=== PATIENT | female | born 1975 | race Caucasian/White ===

== ENCOUNTER 2020-08-09 13:09 | Outpatient (REF) | payer OTHER, SELFPAY ==
[2020-08-09 14:18] LABS: MANUAL DIFF FLAG NO
[2020-08-09 14:23] LABS: Glucose Urine UA 100 MG/DL (NEG); Leukocyte Esterase Urine NEG (NEG); Nitrite Urine NEG (NEG); PH 6.5 (5.0-8.0); Specific Gravity - Urine 1.015 (1.005-1.025); Urine Blood NEG (NEG); Urine Ketones NEG (NEG); Urine Protein NEG (NEG-TRACE)
[2020-08-09 14:24] LABS: Basophils Percent Auto 0.4 % (0-2); Eosinophils Absolute Auto 0.4 X10*3/uL (0.0-0.4); Eosinophils Percent Auto 5.9 % (0-4); Hematocrit 43.7 % (37-47); Hemoglobin 14.3 g/dl (12.0-16.0); Imm Gran Abs Auto 0.01 X10*3/uL (0.00-0.03); Imm Gran Pct Auto 0.1 % (0.0-0.4); Lymphocytes Absolute Auto 1.8 X10*3/uL (1.2-4.9); Mean Corpuscular HGB Conc 32.7 g/dl (31.0-35.0); Mean Corpuscular Hemoglobin 29.7 pg (27.0-33.0); Mean Corpuscular Volume 90.9 fL (80-98); Mean Platelet Volume 9.9 fL (9.4-12.3); Monocytes Absolute Auto 0.5 X10*3/uL (0.1-1.2); Monocytes Percent Auto 6.8 % (2-11); Neutrophils Percent Auto 59.8 % (45-73); Platelet Count 285 X10*3/uL (160-400); Red Blood Count 4.81 X10*6/uL (4.20-5.50); Red Cell Distribution Width 12.2 % (11.0-16.0); White Blood Count 6.8 X10*3/uL (4.8-10.8)
[2020-08-09 14:25] LABS: Appearance Urine HAZY; Color Urine YELLOW
[2020-08-09 14:48] LABS: Alanine Aminotransferase 15 U/L (0-31); Albumin Level 4.6 g/dL (3.5-5.0); Alkaline Phosphatase 91 U/L (39-117); Anion Gap 13 (12-20); Aspartate Amino Transferase 14 U/L (5-31); Bilirubin Total 0.5 mg/dL (0.0-1.0); Blood Urea Nitrogen 13 mg/dL (9-16); Calcium 9.5 mg/dL (8.4-10.2); Carbon Dioxide 28 mmol/L (22-29); Chloride 103 mmol/L (96-108); Cholesterol 279 mg/dL; Estimated Glomerular Filt Rate > 60; Glucose Random 92 mg/dL (60-115); HDL Cholesterol 60 mg/dL; LDL Cholesterol Calculated 158 mg/dl; Potassium 4.3 mmol/L (3.3-5.1); Sodium 140 mmol/L (135-145); Total Protein 7.3 g/dL (6.5-8.0); Triglycerides 306 mg/dL; Uric Acid 6.7 mg/dL (2.4-5.7)
[2020-08-09 14:59] LABS: Bacteria Urine TRACE /LPF; Mucus Urine 1+ /LPF; RBC Urine 0-2 /HPF (0); Squamous Epithelial Cell Urine 2+ /LPF; WBC Urine 0-2 /HPF (0-4)
[2020-08-09 15:01] LABS: Free T4 (Free Thyroxine) 0.91 ng/dL (0.71-1.85); Thyroid Stimulating Hormone 0.89 uIU/mL (0.32-4.0); Vitamin D 25-OH Total 28.7 ng/mL (>30)
[2020-08-09 15:21] LABS: Folate 14.4 ng/mL (> or = 4.0); Vitamin B12 409 pg/mL (200-900)
== END 2020-08-09 13:10 | disposition home or self-care (01) ==
LOC: HO.LAB 13:09
PROVIDERS: PCP Internal Medicine; Visit Provider Internal Medicine
DX: F41.9 Anxiety disorder, unspecified (principal); M54.10 Radiculopathy, site unspecified; M10.9 Gout, unspecified; E78.00 Pure hypercholesterolemia, unspecified; M54.5 Low back pain
CPT/HCPCS: 36415; 80053; 80061; 81001; 82306; 82607; 82746; 84439; 84443; 84550; 85025

== ENCOUNTER 2021-05-13 18:24 | Emergency (ER) | payer OTHER, SELFPAY ==
[2021-05-13 18:39] VITALS: BP 172/118; PULSE 81; RESP 16; TEMP 37.1; O2SAT 98; BMI 39.1
[2021-05-13 19:40] VITALS: BP 172/101; PULSE 66; RESP 18; TEMP 36.9; O2SAT 99
[2021-05-13 21:06] VITALS: BP 158/85; PULSE 64; RESP 18; TEMP 37.1; O2SAT 97
[2021-05-13 22:01] LABS: COVID-19 Test Negative (Negative); IDNOW Serial# 9DD0AD1C
--- NOTE | 2021-05-13 22:24 | ED_ITS ---
HPI - General Adult General Chief complaint: General Medical Stated complaint: ALLERGIC REACTION Time Seen by Provider: 05/13/21 21:17 Source: patient Mode of arrival: ambulatory Limitations: no limitations History of Present Illness HPI narrative: 45 yold female presents to the ED for side effect of ambien. patient states she has not taken ambien in years and prescribed this past and than states it made her feel off. Patient states it made her feel weird, but could not expalined it. patient states having tingling once she took meds so she stopped taking it. patient secondary complain was left arm redness on area where she had new tatoo done last . patient denies any arm swelling, chest pain, or shortness of breath. Patient states no chest pain, shortness of breath weakness, or dizziness Related Data Home Medications Medication Instructions Recorded Confirmed allopurinol 300 mg tablet 300 mg PO DAILY 05/25/20 04/29/21 dextroamphetamine-amphetamine 15 15 mg PO BID 05/25/20 04/29/21 mg tablet duloxetine 60 mg capsule,delayed 60 mg PO DAILY 05/25/20 04/29/21 release Previous Rx's Medication Instructions Recorded clindamycin HCl 150 mg capsule 150 mg PO TID 7 Days #21 cap 12/25/20 clindamycin HCl 300 mg capsule 300 mg PO TID 7 Days #21 cap 12/25/20 fluticasone propionate 50 2 spray INTRANASAL DAILY #3 ea 04/29/21 mcg/actuation nasal spray,suspension gabapentin 300 mg capsule 300 mg PO TID 90 Days #270 cap 04/29/21 ibuprofen 800 mg tablet 800 mg PO Q8H #30 tab 04/29/21 tizanidine 4 mg tablet 4 mg PO Q8H 30 Days #90 tab 04/29/21 zolpidem 5 mg tablet 5 mg PO BEDTIME 30 Days #14 tab 04/29/21 clindamycin HCl 300 mg capsule 300 mg PO QID 7 Days #28 cap 05/13/21 Allergies Allergy/AdvReac Type Severity Reaction Status Date / Time Penicillins Allergy Severe Vomiting Verified 04/29/21 09:07 codeine [CODEINE] Allergy Unknown VOMIT Verified 04/29/21 09:07 hydrocodone [HYDROCODONE] Allergy Unknown VOMIT Verified 04/29/21 09:07 tylonal with codene Allergy Unknown vomiting Uncoded 04/29/21 09:07 Review of Systems Review of Systems: Adverse medication reaction. Left arm redness after new tatoo was placed. Yes all other systems are reviewed and are negative [facility] Past Medical History Medical History (Updated 05/14/21 @ 00:01 by Simón Vera) Gout Hypercholesterolemia Radicular pain of upper extremity Surgical History (Updated 05/25/20 @ 17:07 by Fran Tarango MD) DDD (degenerative disc disease), cervical H/O toe surgery H/O tubal ligation Family History Family History (Updated 05/25/20 @ 17:08 by Fran Tarango MD) Father Alcohol abuse Brother Schizophrenia Social History Social History (Updated 05/25/20 @ 17:09 by Fran Tarango MD) Housing: Apartment Alcohol intake: current Alcohol intake frequency: a few times a month Alcohol type: beer, wine and hard liquor Patient Tobacco Use Status: Former Tobacco user Tobacco use type: Cigarette e-Cigarette/Vaping Use: Never Used Second Hand Smoke Exposure: No Advance Directives: No Advance Directives Information Provided: No Current occupational status: disabled Physical Exam ED Vital Signs: Vital Signs - 24 hr 05/13/21 18:39 05/13/21 19:40 05/13/21 21:06 Temperature 98.8 F 98.4 F 98.7 F Pulse Rate 81 66 64 Respiratory Rate 16 18 18 Blood Pressure 172/118 H 172/101 H 158/85 H Pulse Oximetry 98 99 97 BMI result Body Mass Index 39.1 Const General: cooperative, healthy appearing, comfortable, no acute distress, well developed, alert, awake and Physically active Orientation/consciousness: patient oriented x3 HENMT Head: Yes normal to inspection, Yes No palpable skull fracture present, Yes normocephalic, Yes atraumatic and No abrasion Eyes General: appearance normal, both eyes and all related structures Neck Neck: Yes normal visual inspection, Yes full ROM, Yes no lymphadenopathy, Yes no meningeal signs, Yes trachea midline, Yes supple, No anterior neck swelling and No tender Chest Chest palpation & inspection: normal inspection of the chest and normal palpation of entire chest wall Resp Effort & Inspection: normal respiratory effort and able to speak in complete sentences Auscultation: clear to auscultation bilaterally Cardio Jugular venous distension: no JVD Heart sounds: S1 normal heart sound present and S2 normal heart sound present GI Inspection: Yes normal to inspection and No abdominal wall ecchymosis Palpation (GI): Soft to palpation, not firm, nontender, no guarding and not rigid General: No CVA tenderness and Yes no CVA tenderness Back/Spine/Pelvis Back: no CVA tenderness, No CVA tenderness and No back tenderness Skin Other: erythema on area of tattoo with warmth. General skin exam: no rashes or lesions noted and elasticity normal Neuro Other: negative for any neuro deficits. General: patient oriented x3, gait normal, no meningeal signs and CN's II-XI intact bilaterally Cranial nerves: Yes CN's II-XII intact bilaterally Extrem General: Yes normal to inspection and Yes full ROM Elbow/forearm/wrist images: 1. Area of erythema and warmth on new tattoo. Negative for red streaks or swelling. vascular, motor, and neuro exam is intact. Psych Appearance: grossly normal, well kempt and not disheveled Course Course Course Narrative: Patient not in any distress. erythema presents as cellulitis. Patient is anxious. patient given re-assurance. Patient informed infomred to stop taking ambien. Covid swab ordered. Reevaluation(s) Reevaluation #1: Patient discharged with antibiotics for left arm cellulitis. not suscpecting DVT. Covid test negative. patient informed to follow up with PCP in regards to ambien medication. Patient safe for dsicharge. Medical Decision Making MDM Narrative Medical decision making narrative: anxiety, cellulitis, adverse medciation reaction. Lab Data Labs: Lab Results 05/13/21 Range/Units 21:40 COVID-19 ([facility]) Negative (Negative) COVID-19 Clin Com See Note Discharge Plan Discharge Clinical Impression: Cellulitis, Adverse drug reaction Patient Disposition: Home, Self-Care Instructions: Cellulitis (DC), Adverse Drug Reaction (ED) Additional Instructions: Left arm erythema contact to area likely cellulitis will be discharged with antibiotics. You-re COVID swab came back negative. Stop taking ambien and follow up with primary care provider. Return to ED for worsening redness, swelling of left upper extremity, chest pain, shortness of breath, rash elsewhere on the body, swelling lips, sensation of throat closing, chest pain, shortness of breath, or any other concerning symptoms. Prescriptions: New clindamycin HCl 300 mg capsule 300 mg PO QID 7 Days Qty: 28 0RF No Action allopurinol 300 mg tablet 300 mg PO DAILY 0RF duloxetine 60 mg capsule,delayed release(DR/EC) 60 mg PO DAILY 0RF dextroamphetamine-amphetamine 15 mg tablet 15 mg PO BID 0RF Label Comments: Leila psychiatrist Rx Instructions: administer doses at least 4-6 hours apart clindamycin HCl 150 mg capsule 150 mg PO TID 7 Days Qty: 21 0RF Rx Instructions: take with the 300 mg capsule to equal 450 mg t.i.d. clindamycin HCl 300 mg capsule 300 mg PO TID 7 Days Qty: 21 0RF Rx Instructions: take with the 150 mg capsule to equal 450 mg t.i.d. gabapentin 300 mg capsule 300 mg PO TID 90 Days Qty: 270 0RF tizanidine 4 mg tablet 4 mg PO Q8H 30 Days Qty: 90 1RF ibuprofen 800 mg tablet 800 mg PO Q8H Qty: 30 0RF fluticasone propionate 50 mcg/actuation spray,suspension 2 spray intranasal DAILY Qty: 3 3RF Rx Instructions: administer into each nostril zolpidem 5 mg tablet 5 mg PO BEDTIME 30 Days Qty: 14 2RF Interventions: ED Discharge Assessment Last Done: 05/13/21 22:50 Discharge Date/Time: 05/13/21 22:51 Print Language: Korean
[2021-05-13] MEDS: Clindamycin HCL 300 MG CAPSULE PO (22:48)
== END 2021-05-13 22:51 | disposition home or self-care (01) ==
PROVIDERS: Physician Assistant; Emergency Provider Internal Medicine; PCP Internal Medicine
DX: L03.114 Cellulitis of left upper limb (principal); R20.2 Paresthesia of skin; T42.6X5A Adverse effect of other antiepileptic and sedative-hypnotic drugs, initial encounter; Y92.9 Unspecified place or not applicable; Z20.822 Contact with and (suspected) exposure to COVID-19
CPT/HCPCS: 87635; 99283; 99284

== ENCOUNTER 2021-09-16 13:28 | Outpatient (RCR) | payer OTHER, SELFPAY ==
--- NOTE | 2021-09-16 16:11 | MHC.PT.EP ---
[facility] [place] Office [place] [facility] [place] Office [address] wOen Cabrales [address] [phone] F: [phone] F: [phone] F: [phone] F: [phone] Physical Therapy Plan of Care Date of Evaluation: Date of Surgery: Diagnosis: LBP Assessment: Pt is a 46 y/o female with total body pain and script for eval and treat of LBP presents with lumbar dysfunction resulting in decreased tolerance and ability to perform ambulatory, standing and sitting tasks for duration as well as lifting objects of weight, as well as disturbed sleep secondary to decreased hip and core strength, decreased trunk ROM as well as decreased posture, increased tissue tension, gait abnormality and pain. Pt is deemed an appropriate candidate to receive skilled PT in order to address her physical limitations to improve her functional ability. Frequency and Duration: The patient will be seen 1 x / wk x 5 wks. Short Term Goals: Initiate HEP. improve baseline pain from 8/10 to < 6/10. 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 Pt will be able to perform quality transverse abdominis contraction w/o cues. Pt will report that she is able to walk her required distances though has pain; initial: pain limited from walking long distances. improve core strength from fair to at least good (-). Pt will report pain is moderate and does not change much; initial: severe and does not change much. Treatment Plan: Modalities to reduce pain, spasms and effusion. Manual therapy to restore motion and function. Therapeutic exercise to improve strength and flexibility. Neuromuscular re-education for posture and balance. Therapeutic activities to return to functional activities of daily living. Electronically signed by: aPsquale Clements PT. Please sign and return to therapist. Thank you for your referral.
== END 2021-10-18 13:38 | disposition home or self-care (01) ==
LOC: HO.PTCHIC 13:28
PROVIDERS: PCP Internal Medicine; Visit Provider Nurse Practitioner Family
DX: M54.50 Low back pain, unspecified (principal)
CPT/HCPCS: 97110; 97161

== ENCOUNTER → 2021-10-07 13:02 | Outpatient (BNVA) | payer OTHER, SELFPAY | PROVIDERS: PCP Internal Medicine; Visit Provider Internal Medicine | DX: M54.2 Cervicalgia (principal); M54.10 Radiculopathy, site unspecified; M47.816 Spondylosis without myelopathy or radiculopathy, lumbar region; M96.1 Postlaminectomy syndrome, not elsewhere classified | CPT/HCPCS: 99202 ==

== ENCOUNTER 2022-10-15 13:37 | Outpatient (AMB) | payer OTHER, SELFPAY ==
[2022-10-15 13:39] VITALS: BP 130/74; PULSE 79; O2SAT 98; BMI 35.4
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
== END 2022-10-15 15:02 | disposition home or self-care (01) ==
PROVIDERS: PCP Internal Medicine; Visit Provider Internal Medicine
DX: Z00.00 Encounter for general adult medical examination without abnormal findings (principal); F90.9 Attention-deficit hyperactivity disorder, unspecified type; G43.909 Migraine, unspecified, not intractable, without status migrainosus; J45.909 Unspecified asthma, uncomplicated; M10.9 Gout, unspecified; E78.00 Pure hypercholesterolemia, unspecified; F41.1 Generalized anxiety disorder; M96.1 Postlaminectomy syndrome, not elsewhere classified; Z12.31 Encounter for screening mammogram for malignant neoplasm of breast; Z12.11 Encounter for screening for malignant neoplasm of colon; N95.1 Menopausal and female climacteric states; H02.60 Xanthelasma of unspecified eye, unspecified eyelid
CPT/HCPCS: 99396

== ENCOUNTER 2022-12-04 13:17 | Outpatient (REF) | payer OTHER, SELFPAY ==
--- NOTE | ~2022-12-04 | MM_ITS ---
EXAMINATION: MM SCREENING DIGITAL BREAST TOMOSYNTHESIS, BILATERAL CLINICAL INFORMATION: Screening. Asymptomatic. COMPARISON: Mammography: This study is compared with the only prior mammogram [id number]. TECHNIQUE: Digital breast tomosynthesis is performed in both the craniocaudal and mediolateral oblique views along with computer-aided detection (CAD). Synthesized 2D images are generated from the tomosynthesis. FINDINGS: The breasts are almost entirely fatty (ACR BI-RADS breast composition Category a). There are no significant masses, abnormal calcifications, or other abnormalities. MM/MM tomosynthesis screening BI IMPRESSION: No mammographic evidence of malignancy. ASSESSMENT: BI-RADS BI-RADS 1 - Negative RECOMMENDATION: Routine annual mammography screening. 1 year F/U This examination should not preclude the clinical evaluation of a suspicious palpable abnormality. This patient's information was entered into a reminder system with a target due date for their next mammogram.
== END 2022-12-04 13:18 | disposition home or self-care (01) ==
LOC: HO.MAMMO 13:17
PROVIDERS: PCP Internal Medicine; Visit Provider Internal Medicine
DX: Z12.31 Encounter for screening mammogram for malignant neoplasm of breast (principal)
CPT/HCPCS: 77063; 77067

== ENCOUNTER → 2022-12-04 13:45 | Outpatient (BNV) | payer OTHER, SELFPAY | PROVIDERS: PCP Internal Medicine; Visit Provider Radiology Diagnostic Radiology | DX: Z12.31 Encounter for screening mammogram for malignant neoplasm of breast (principal) | CPT/HCPCS: 77063; 77067 ==

== ENCOUNTER 2023-04-17 15:05 | Outpatient (AMB) | payer OTHER, SELFPAY ==
[2023-04-17 15:42] VITALS: PULSE 80; O2SAT 97; BMI 35.1
--- NOTE | 2023-04-17 15:42 | MHC.PC.OV ---
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 Accompanied by: Self / Same As Patient Allergies Penicillins Allergy (Severe, Verified 04/17/23 15:49) Vomiting codeine [CODEINE] Allergy (Unknown, Verified 04/17/23 15:49) VOMIT hydrocodone [HYDROCODONE] Allergy (Unknown, Verified 04/17/23 15:49) VOMIT Medication List - Last Reconciled 04/17/23 by Fran Kinney Po, albuterol sulfate 90 mcg/actuation 1 inh inhalation Q4-6H PRN albuterol sulfate 90 mcg/actuation (Ventolin HFA) 2 puffs inhalation Q6H PRN bupropion HCl (Wellbutrin SR) 150 mg PO BID cetirizine (Zyrtec) 10 mg PO DAILY PRN dextroamphetamine-amphetamine 20 mg 1 tab PO BID [EMBR Wave 2 As directed] fexofenadine (Lisbet Allergy) 180 mg PO DAILY fluticasone propionate 50 mcg/actuation 2 sprays intranasal DAILY gabapentin 600 mg PO TID 90 days ibuprofen 800 mg PO Q8H 30 days lorazepam 0.5 mg PO DAILY PRN nicotine 1 patch transdermal Q24H nicotine 1 patch transdermal Q24H tizanidine 4 mg PO Q8H 30 days Tobacco use date assessed: 04/17/23 Dental Screening Dental Screen Date: 04/17/23 Did you have a dental visit in the last 12 months?: No Did you have a dental problem in the last 6 months where you did not have access to dental care?: No Was dental information given to patient?: Patient has dentist HPI 6mth f/u HPI Details 47-year-old obese female with ADHD gout hypercholesterolemia generalized anxiety disorder migraine and cervical post laminectomy syndrome last seen in September 2022 for physical exam. Mammogram November 2022. reminded about colon test. Allergy problem/ on gabapentin and asking for higher dose patient also has the anxiety does have counseling but was asking for p.r.n. anxiety medication lorazepam. Did discussed about the problem and discussed about medications. Patient started smoking again and was asking for some help. Discussion about how to stop smoking prescription sent. Also has problems with hearing and would like to have a hearing test. [facility] Medical History (Updated 04/17/23 @ 16:15 by Fran Tarango MD) Breast cancer screening by mammogram Hypercholesterolemia Radicular pain of upper extremity Gout Surgical History H/O tubal ligation H/O toe surgery DDD (degenerative disc disease), cervical Family History (Updated 10/15/22 @ 14:39 by Fran Taragno MD) Father Alcohol abuse Brother Schizophrenia Mental health disorder Brother FH: prostate cancer Maternal Uncle FH: prostate cancer Social History (Updated 10/15/22 @ 14:40 by Fran Tarango MD) Housing: Apartment Alcohol intake: current Alcohol intake frequency: a few times a month Alcohol type: beer, wine and hard liquor Patient Tobacco Use Status: Former Tobacco user Tobacco use type: Cigarette Years Smoked: 1/2 pack a day 2020 e-Cigarette/Vaping Use: Never Used Second Hand Smoke Exposure: No service: No Current occupational status: disabled Cognitive needs: Yes Hearing needs: No Vision needs: No Questionnaire PHQ-9 Over the last 2 weeks, how often have you been bothered by any of the following problems? 1. Little interest or pleasure in doing things: more than half the days 2. Feeling down, depressed, or hopeless: more than half the days 3. Trouble falling or staying asleep, or sleeping too much: nearly every day 4. Feeling tired or having little energy: nearly every day 5. Poor appetite or overeating: several days 6. Feeling bad about yourself - or that you are a failure or have let yourself or your family down: not at all 7. Trouble concentrating on things, such as reading the newspaper or watching television: more than half the days 8. Moving or speaking so slowly that other people could have noticed. Or the opposite - being so fidgety or restless that you have been moving around a lot more than usual: more than half the days 9. Thoughts that you would be better off or of hurting yourself in some way: not at all Total score: 15 35849 - PHQ-9 Billing: Yes Source: Developed by Drs. Harshil L. Misty Moore Kurt Kroenke and colleagues, with an educational allie from [employer]. Thrive Questionnaire Date Thrive assessed: 04/17/23 I am a: Patient What is your living situation today?: I have a steady place to live Within the past 12 months, did the food you bought not last and you didn't have the money to get more?: Never true Within the past 12 months, did you worry whether your food would run out before you got money to buy more?: Never true Do you have trouble paying for medicines?: No Do you have trouble getting transportation to medical appointments?: No Do you have trouble paying your heating and electricity bill?: No Do you have trouble taking care of your child, family member or friend?: No Do you have trouble with day-to-day activities such as bathing, preparing meals, shopping, managing finances, etc.?: No Are you currently unemployed and looking for a job?: No Are you interested in more education?: No Please select the resources that you would like help with: None Currently or been in a relationship where the following occur: no concerns reported THRIVE Score: 0 AUDIT C Alcohol Use Questionnaire (AUDIT-C) 1. How often do you have a drink containing alcohol?: Monthly or less 2. How many drinks containing alcohol do you have on a typical day when you are drinking?: 3 or 4 3. How often do you have six or more drinks on one occasion?: Never Total Score: 2 STEVE-7 AMB Questionnaire STEVE-7 Date STEVE - 7 assessed: 04/17/23 Feeling nervous, anxious, or on edge: 2 = More than half the days Not being able to stop or control worryin = Nearly every day Worrying too much about different things: 3 = Nearly every day Trouble relaxin = Nearly every day Being so restless that it is hard to sit still: 3 = Nearly every day Becoming easily annoyed or irritable: 3 = Nearly every day Feeling afraid as if something awful might happen: 2 = More than half the days Total STEVE-7 score (0-4 normal; 5-9 mild; 10-14 moderate; 15-21 severe): 19 Source: Developed by Misty Franco Kurt Kroenke and colleagues, with an educational allie from [employer]. STEVE-7 Assessment Billing STEVE-7 Assessment Tool: STEVE-7 Assessment 75267 Physical exam (Primary Care) Vital Signs: Last Vital Signs Pulse 80 04/17/23 15:42 Pulse Ox 97 04/17/23 15:42 Oxygen Delivery Method Room Air 04/17/23 15:42 BMI result Body Mass Index 35.1 Tobacco/Smoking Status: Tobacco use Status Tobacco use date assessed 04/17/23 04/17/23 15:54 Patient Tobacco Use Status Former Tobacco user 04/17/23 15:42 Tobacco use type Cigarette 04/17/23 15:42 e-Cigarette/Vaping Use Never Used 04/17/23 15:42 PHQ-9: PHQ-9 Score PHQ-9: Total score 15 04/17/23 15:51 Thrive Assessment: Date of Thrive Assessment Date Thrive assessed 04/17/23 04/17/23 15:51 Currently or been in a relationship where the following occur: no concerns reported Const General: alert; No acute distress Eyes Conjunctivae: conjunctivae normal Resp Auscultation: clear to auscultation bilaterally Cardio Rate: regular rate Rhythm: regular rhythm GI Inspection: Yes normal to inspection Extrem General: Yes normal to inspection and No edema Assessment and Plan Assessment & Plan (1) Colon cancer screening: Code(s): Z12.11 - Encounter for screening for malignant neoplasm of colon Plan: Patient is reminded about colonoscopy (2) Generalized anxiety disorder: Comment: Saqib [place] (04/2020) Code(s): F41.1 - Generalized anxiety disorder Plan: Continue with counseling and therapy (3) Hypercholesterolemia: Code(s): E78.00 - Pure hypercholesterolemia, unspecified Plan: Avoid fried foods, chicken skin, eggs, butter margarine, pastries and meat. Be it pork or beef they have a lot of cholesterol LDL goal of less than 130 and triglyceride of less than 150 (4) ADHD: Code(s): F90.9 - Attention-deficit hyperactivity disorder, unspecified type Plan: Continue with counseling and therapy (5) Allergy: Code(s): T78.40XA - Allergy, unspecified, initial encounter Plan: Lisbet 180 mg once a day sent in (6) Tobacco abuse: Code(s): Z72.0 - Tobacco use Plan: Patient was strongly advised to stop smoking. Wellbutrin as well as nicotine patches sent (7) Hearing difficulty: Code(s): H91.90 - Unspecified hearing loss, unspecified ear Plan: Referral for hearing test. Orders: Referrals Orthopedics Referral M96.1 - Postlaminectomy syndrome, not elsewhere classified Speech and Hearing Referral H91.90 - Unspecified hearing loss, unspecified ear Medications: New nicotine 1 patch transdermal Q24H 28 ea 0RF Z72.0 - Tobacco use nicotine 1 patch transdermal Q24H 28 ea 1RF Z72.0 - Tobacco use fexofenadine (Lisbet Allergy) 180 mg PO DAILY 90 tabs 2RF T78.40XA - Allergy, unspecified, initial encounter gabapentin 600 mg PO TID 270 tabs 1RF 90 days M96.1 - Postlaminectomy syndrome, not elsewhere classified bupropion HCl (Wellbutrin SR) 150 mg PO BID 60 tabs 2RF F41.1 - Generalized anxiety disorder Discontinued gabapentin Discontinued Reason: Doctor's Order 300 mg PO TID 90 days 270 caps 0RF M25.511 - Pain in right shoulder Coding Level of Care Code Est Pt Level 4 (44759) Diagnoses Colon cancer screening Z12.11 Generalized anxiety disorder F41.1 Hypercholesterolemia E78.00 ADHD F90.9 Allergy T78.40XA Tobacco abuse Z72.0 Hearing difficulty H91.90 Additional Codes STEVE-7 Assessment Billing - STEVE-7 Assessment Tool: STEVE-7 Assessment 70631 ([id number])
== END 2023-04-17 16:36 | disposition home or self-care (01) ==
PROVIDERS: PCP Internal Medicine; Visit Provider Internal Medicine
DX: E78.00 Pure hypercholesterolemia, unspecified (principal); Z12.11 Encounter for screening for malignant neoplasm of colon; F41.1 Generalized anxiety disorder; F90.9 Attention-deficit hyperactivity disorder, unspecified type; T78.40XA Allergy, unspecified, initial encounter; Z72.0 Tobacco use; H91.93 Unspecified hearing loss, bilateral
CPT/HCPCS: 99214

== ENCOUNTER 2023-07-01 08:02 | Outpatient (AMB) | payer OTHER, SELFPAY ==
[2023-07-01 08:08] VITALS: BP 130/70; PULSE 75; TEMP 36.7; O2SAT 97; BMI 35.1
--- NOTE | 2023-07-01 08:08 | AM.OFFWIN_ITS ---
Intake Vital Signs 07/01/23 08:08 Height 5 ft 7 in Weight 224 lb BMI 35.1 BP 130/70 Blood Pressure Location Lt brachial Position Sitting Pulse 75 Pulse Source Pulse Oximeter Temp 98.1 F Temp Source Oral Pulse Oximetry (%) 97 Oxygen Delivery Method Room Air Intake Visit Reasons: EP mouth pain Intake Note: pt is here for mouth pain, suspects there is an infection in her gums. pcp advised her to come here for antibiotics Patient Tobacco Use Status: Former Tobacco user Allergies Penicillins Allergy (Severe, Verified 07/01/23 08:37) Vomiting codeine [CODEINE] Allergy (Unknown, Verified 07/01/23 08:37) VOMIT hydrocodone [HYDROCODONE] Allergy (Unknown, Verified 07/01/23 08:37) VOMIT Medication List - Last Reconciled 07/01/23 by Aman Herndon MD albuterol sulfate 90 mcg/actuation 1 inh inhalation Q4-6H PRN albuterol sulfate 90 mcg/actuation (Ventolin HFA) 2 puffs inhalation Q6H PRN bupropion HCl (Wellbutrin SR) 150 mg PO BID cetirizine (Zyrtec) 10 mg PO DAILY PRN dextroamphetamine-amphetamine 20 mg 1 tab PO BID [EMBR Wave 2 As directed] fexofenadine (Lisbet Allergy) 180 mg PO DAILY fluticasone propionate 50 mcg/actuation 2 sprays intranasal DAILY gabapentin 600 mg PO TID 90 days ibuprofen 800 mg PO Q8H 30 days lorazepam 0.5 mg PO DAILY PRN nicotine 1 patch transdermal Q24H sulfamethoxazole-trimethoprim 800-160 mg (Bactrim DS) 1 tab PO BID 7 days tizanidine 4 mg PO Q8H 30 days Do you need a note to return to daycare/school/sports/work: No HPI EP mouth pain HPI Details 47-year-old female presents to the [facility] for a sick visit. Patient is complaining of pain in her teeth and left side of the cheek. Pain on chewing food. Her cheek is swollen. No fever or chills. [facility] Medical History (Updated 04/17/23 @ 16:15 by Fran aTrango MD) Breast cancer screening by mammogram Hypercholesterolemia Radicular pain of upper extremity Gout Surgical History H/O tubal ligation H/O toe surgery DDD (degenerative disc disease), cervical Family History (Updated 10/15/22 @ 14:39 by Fran Tarango MD) Father Alcohol abuse Brother Schizophrenia Mental health disorder Brother FH: prostate cancer Maternal Uncle FH: prostate cancer Social History (Updated 10/15/22 @ 14:40 by Fran Tarango MD) Housing: Apartment Alcohol intake: current Alcohol intake frequency: a few times a month Alcohol type: beer, wine and hard liquor Patient Tobacco Use Status: Former Tobacco user Tobacco use type: Cigarette Years Smoked: 1/2 pack a day 2020 e-Cigarette/Vaping Use: Never Used Second Hand Smoke Exposure: No service: No Current occupational status: disabled Cognitive needs: Yes Hearing needs: No Vision needs: No Physical Exam Vital Signs: Last Vital Signs Temp 98.1 F 07/01/23 08:08 Pulse 75 07/01/23 08:08 BP 130/70 07/01/23 08:08 Pulse Ox 97 07/01/23 08:08 Oxygen Delivery Method Room Air 07/01/23 08:08 BMI result Body Mass Index 35.1 HEENT Other: Face: Left side of the face is swollen compared to the right. Tenderness over the cheek. Oral cavity: Gums are inflamed. Assessment & Plan Assessment & Plan (1) Cellulitis, face: Code(s): L03.211 - Cellulitis of face Plan: Antibiotics called in. Patient was encouraged to make an appointment with a dentist. Medications: New sulfamethoxazole-trimethoprim 800-160 mg (Bactrim DS) 1 tab PO BID 14 tabs 0RF 7 days Coding Level of Care Code Est Pt Level 3 (43778) Diagnoses Cellulitis, face L03.211
== END 2023-07-01 09:25 | disposition home or self-care (01) ==
PROVIDERS: PCP Internal Medicine; Visit Provider Internal Medicine
DX: L03.211 Cellulitis of face (principal)
CPT/HCPCS: 99213

== ENCOUNTER 2023-10-19 14:40 | Outpatient (AMB) | payer OTHER, SELFPAY ==
[2023-10-19 14:43] VITALS: BP 122/90; PULSE 91; O2SAT 99; BMI 35.1
--- NOTE | 2023-10-19 14:43 | MHC.PC.OV ---
Vital Signs 10/19/23 14:43 Height 5 ft 7 in Weight 224 lb 0.6 oz BMI 35.1 BP 122/90 H Blood Pressure Location Lt brachial Position Sitting Pulse 91 Pulse Source Pulse Oximeter Pulse Oximetry (%) 99 Oxygen Delivery Method Room Air Intake Visit Reasons: ANNUAL EXAM Intake Note: Patient is here today for a physical. Pediatric Registered Nurse Required: No Allergies Penicillins Allergy (Severe, Verified 10/19/23 14:43) Vomiting codeine [CODEINE] Allergy (Unknown, Verified 10/19/23 14:43) VOMIT hydrocodone [HYDROCODONE] Allergy (Unknown, Verified 10/19/23 14:43) VOMIT Medication List - Last Reconciled 10/19/23 by Fran Tarango MD albuterol sulfate 90 mcg/actuation 1 inh inhalation Q4-6H PRN albuterol sulfate 90 mcg/actuation (Ventolin HFA) 2 puffs inhalation Q6H PRN blood pressure monitor (Blood Pressure Kit) As directed bupropion HCl SR (Wellbutrin SR) 150 mg PO BID cetirizine (Zyrtec) 10 mg PO DAILY PRN dextroamphetamine-amphetamine 30 mg 1 tab PO BID [EMBR Wave 2 As directed] fluticasone propionate 50 mcg/actuation 2 sprays intranasal DAILY gabapentin 600 mg PO TID 90 days ibuprofen 800 mg PO Q8H 30 days lorazepam 0.5 mg PO DAILY PRN tizanidine 4 mg PO Q8H 30 days Tobacco use date assessed: 04/17/23 Dental Screening Dental Screen Date: 10/19/23 Did you have a dental visit in the last 12 months?: No Did you have a dental problem in the last 6 months where you did not have access to dental care?: No Was dental information given to patient?: Patient has dentist HPI ANNUAL EXAM HPI Details 48-year-old obese female smoker with generalized anxiety disorder hypercholesterolemia ADHD coming in for physical exam last seen in March 2023. Patient is up-to-date with mammogram. Review of the notes has been to the Urgent Center in June for pain in the mouth diagnosis of facial cellulitis and was given Bactrim. anxiety is getting worse [facility] Medical History (Updated 10/19/23 @ 15:40 by Fran Tarango MD) Breast cancer screening by mammogram Hypercholesterolemia Radicular pain of upper extremity Gout Surgical History H/O tubal ligation H/O toe surgery DDD (degenerative disc disease), cervical Family History (Updated 10/15/22 @ 14:39 by Fran Tarango MD) Father Alcohol abuse Brother Schizophrenia Mental health disorder Brother FH: prostate cancer Maternal Uncle FH: prostate cancer Social History (Updated 10/19/23 @ 15:34 by Fran Tarango MD) Housing: Apartment Alcohol intake: current Alcohol intake frequency: a few times a month Alcohol type: beer, wine and hard liquor Comment: once a month1-2 glasses Patient Tobacco Use Status: Former Tobacco user Tobacco use type: Cigarette Years Smoked: 1/2 pack a day 2019 stopped 08/2023 e-Cigarette/Vaping Use: Never Used Second Hand Smoke Exposure: No service: No Current occupational status: disabled Cognitive needs: Yes Hearing needs: No Vision needs: No Questionnaire PHQ-9 Over the last 2 weeks, how often have you been bothered by any of the following problems? 1. Little interest or pleasure in doing things: more than half the days 2. Feeling down, depressed, or hopeless: more than half the days 3. Trouble falling or staying asleep, or sleeping too much: nearly every day 4. Feeling tired or having little energy: nearly every day 5. Poor appetite or overeating: several days 6. Feeling bad about yourself - or that you are a failure or have let yourself or your family down: not at all 7. Trouble concentrating on things, such as reading the newspaper or watching television: more than half the days 8. Moving or speaking so slowly that other people could have noticed. Or the opposite - being so fidgety or restless that you have been moving around a lot more than usual: more than half the days 9. Thoughts that you would be better off or of hurting yourself in some way: not at all Total score: 15 [id number] - PHQ-9 Billing: Yes Source: Developed by Drs. Harshil Moore, Misty Cifuentes, Aleksandr Burton and colleagues, with an educational allie from [employer]. Thrive Questionnaire Date Thrive assessed: 04/17/23 I am a: Patient What is your living situation today?: I have a steady place to live Within the past 12 months, did the food you bought not last and you didn't have the money to get more?: Never true Within the past 12 months, did you worry whether your food would run out before you got money to buy more?: Never true Do you have trouble paying for medicines?: No Do you have trouble getting transportation to medical appointments?: No Do you have trouble paying your heating and electricity bill?: No Do you have trouble taking care of your child, family member or friend?: No Do you have trouble with day-to-day activities such as bathing, preparing meals, shopping, managing finances, etc.?: No Are you currently unemployed and looking for a job?: No Are you interested in more education?: No Please select the resources that you would like help with: None Currently or been in a relationship where the following occur: No concerns reported THRIVE Score: 0 AUDIT C Alcohol Use Questionnaire (AUDIT-C) 1. How often do you have a drink containing alcohol?: Monthly or less 2. How many drinks containing alcohol do you have on a typical day when you are drinking?: 3 or 4 3. How often do you have six or more drinks on one occasion?: Never Total Score: 2 STEVE-7 AMB Questionnaire STEVE-7 Date STEVE - 7 assessed: 04/17/23 Feeling nervous, anxious, or on edge: 2 = More than half the days Not being able to stop or control worryin = Nearly every day Worrying too much about different things: 3 = Nearly every day Trouble relaxin = Nearly every day Being so restless that it is hard to sit still: 3 = Nearly every day Becoming easily annoyed or irritable: 3 = Nearly every day Feeling afraid as if something awful might happen: 2 = More than half the days Total STEVE-7 score (0-4 normal; 5-9 mild; 10-14 moderate; 15-21 severe): 19 Source: Developed by Drs. Harshil Moore, Misty Cifuentes, Aleksandr Burton and colleagues, with an educational allie from [employer] STEVE-7 Assessment Billing STEVE-7 Assessment Tool: STEVE-7 Assessment 89703 Review of Systems Const Denies poor appetite and Denies weakness Eyes Denies no additional complaints ENT Reports Normal hearing present, Denies dizziness, Denies nasal congestion, Denies tinnitus and Denies sore throat Card Denies chest pain, Denies syncope, Denies rapid heart rate and Denies dyspnea Resp Denies cough and Denies dyspnea GI Denies change in stool character, Reports constipation, Denies diarrhea, Denies nausea and Denies vomiting Denies urinary frequency, Denies difficulty voiding and Denies dysuria Neuro Reports Normal hearing present, Denies confusion, Denies dizziness, Denies syncope and Denies weakness Psych Denies confusion Physical exam (Primary Care) Vital Signs: Last Vital Signs Pulse 91 10/19/23 14:43 BP 122/90 H 10/19/23 14:43 Pulse Ox 99 10/19/23 14:43 Oxygen Delivery Method Room Air 10/19/23 14:43 BMI result Body Mass Index 35.1 Tobacco/Smoking Status: Tobacco use Status Tobacco use date assessed 04/17/23 10/19/23 14:44 Patient Tobacco Use Status Former Tobacco user 10/19/23 14:44 Tobacco use type Cigarette 10/19/23 14:44 e-Cigarette/Vaping Use Never Used 10/19/23 14:44 PHQ-9: PHQ-9 Score PHQ-9: Total score 15 10/19/23 14:44 Thrive Assessment: Date of Thrive Assessment Date Thrive assessed 04/17/23 10/19/23 14:44 Currently or been in a relationship where the following occur: No concerns reported Const General: No confusion Orientation/consciousness: No confusion HENMT Head: Yes normocephalic Ears: external ears normal and TM's normal bilaterally Face and sinus: Yes normal facial exam Mouth: moist mucous membranes Throat: Yes tonsils normal Eyes Conjunctivae: conjunctivae normal Pupils: Equal, round and reactive pupils present and Pupil accommodation reflex normal Direct Ophthalmoscopy: normal light reflex Neck Neck: No lymphadenopathy Thyroid: Thyroid normal Chest Chest palpation & inspection: normal inspection of the chest Resp Effort & Inspection: normal respiratory effort and no audible wheezes Auscultation: clear to auscultation bilaterally, no crackles, no wheezes and lung sounds not diminished Cardio Rate: regular rate Rhythm: regular rhythm Peripheral pulses: radial pulses present and dorsalis pedis present GI Palpation (GI): no masses Auscultation: normal bowel sounds and normoactive bowel sounds Rectal Exam - Female: deferred Skin General skin exam: no rashes or lesions noted Rashes: no rashes Neuro General: No confusion Cranial nerves: Yes Equal, round and reactive pupils present and Yes Normal hearing present Cognition (Neuro): normal cognition Gait exam (Neuro): Normal gait present Motor exam (neuro): 5/5 motor strength present throughout Deep tendon reflexes (DTR's): Right brachioradialis reflex intensity grade: 2+, Left brachioradialis reflex intensity grade: 2+, Right patellar reflex intensity grade: 2+ and Left patellar reflex intensity grade: 2+ Extrem General: No edema Assessment and Plan Assessment & Plan (1) Annual physical exam: Code(s): Z00.00 - Encounter for general adult medical examination without abnormal findings Plan: Patient is advised to eat healthy, keep well hydrated, keep active and have adequate sleep. (2) Tobacco abuse: Comment: stopped 08/2023 Code(s): Z72.0 - Tobacco use Plan: Patient is strongly advised to stop smoking! (3) Colon cancer screening: Code(s): Z12.11 - Encounter for screening for malignant neoplasm of colon Plan: Patient is reminded about colonoscopy (4) Cervical cancer screening: Code(s): Z12.4 - Encounter for screening for malignant neoplasm of cervix Plan: Patient is reminded about cervical cancer screening (5) Hypercholesterolemia: Code(s): E78.00 - Pure hypercholesterolemia, unspecified Plan: Avoid fried foods, chicken skin, eggs, butter margarine, pastries and meat. Be it pork or beef they have a lot of cholesterol LDL goal of less than 130 and triglyceride of less than 150 (6) Generalized anxiety disorder: Comment: Saqib Oviedo (04/2020) Code(s): F41.1 - Generalized anxiety disorder Plan: Continue with counseling and therapy (7) Blood pressure elevated without history of HTN: Code(s): R03.0 - Elevated blood-pressure reading, without diagnosis of hypertension (8) ADHD: Code(s): F90.9 - Attention-deficit hyperactivity disorder, unspecified type (9) Vision changes: Code(s): H53.9 - Unspecified visual disturbance (10) Hearing difficulty: Code(s): H91.90 - Unspecified hearing loss, unspecified ear (11) Colon cancer screening declined: Code(s): Z53.20 - Procedure and treatment not carried out because of patient's decision for unspecified reasons (12) Urinary retention: Code(s): R33.9 - Retention of urine, unspecified Orders: Orders US bladder Today R33.9 - Retention of urine, unspecified UA CC w/rflx Micro + Cult Today R30.0 - Dysuria, R33.9 - Retention of urine, unspecified Referrals Speech and Hearing Referral H91.90 - Unspecified hearing loss, unspecified ear Ophthalmology Referral H53.9 - Unspecified visual disturbance Neurosurgery Referral M96.1 - Postlaminectomy syndrome, not elsewhere classified Medications: New blood pressure monitor (Blood Pressure Kit) As directed 1 ea 0RF I10 - Essential (primary) hypertension, R03.0 - Elevated blood-pressure reading, without diagnosis of hypertension Coding Level of Care Code Est Pt Prev Care 40-64y(68875) Diagnoses Annual physical exam Z00.00 Tobacco abuse Z72.0 Colon cancer screening Z12.11 Cervical cancer screening Z12.4 Hypercholesterolemia E78.00 Generalized anxiety disorder F41.1 Blood pressure elevated without history of HTN R03.0 ADHD F90.9 Vision changes H53.9 Hearing difficulty H91.90 Colon cancer screening declined Z53.20 Urinary retention R33.9 Additional Codes STEVE-7 Assessment Billing - STEVE-7 Assessment Tool: STEVE-7 Assessment [id number] ([id number])
== END 2023-10-19 15:58 | disposition home or self-care (01) ==
PROVIDERS: PCP Internal Medicine; Visit Provider Internal Medicine
DX: Z00.00 Encounter for general adult medical examination without abnormal findings (principal); Z72.0 Tobacco use; Z12.11 Encounter for screening for malignant neoplasm of colon; E78.00 Pure hypercholesterolemia, unspecified; F41.1 Generalized anxiety disorder; R03.0 Elevated blood-pressure reading, without diagnosis of hypertension; F90.9 Attention-deficit hyperactivity disorder, unspecified type; H53.9 Unspecified visual disturbance; Z53.20 Procedure and treatment not carried out because of patient's decision for unspecified reasons; R33.9 Retention of urine, unspecified
CPT/HCPCS: 99396

== ENCOUNTER 2023-11-10 11:45 | Outpatient (AMB) | payer OTHER, SELFPAY ==
--- NOTE | 2023-11-10 11:47 | AM.OFFWIN_ITS ---
Intake Vital Signs 11/10/23 11:48 Height 5 ft 7 in Weight 228 lb BMI 35.7 BP 124/90 H Blood Pressure Location Rt brachial Position Sitting Pulse 67 Pulse Source Pulse Oximeter Temp 98.9 F Temp Source Oral Pulse Oximetry (%) 97 Oxygen Delivery Method Room Air Intake Visit Reasons: EP- congestion, throat and ears hurting Intake Note: pt c/o congestion, throat and ear pain. Started Thursday afternoon Patient Tobacco Use Status: Former Tobacco user Allergies Penicillins Allergy (Severe, Verified 11/10/23 11:47) Vomiting codeine [CODEINE] Allergy (Unknown, Verified 11/10/23 11:47) VOMIT hydrocodone [HYDROCODONE] Allergy (Unknown, Verified 11/10/23 11:47) VOMIT Do you need a note to return to daycare/school/sports/work: Yes HPI EP- congestion, throat and ears hurting HPI Details This is a 48 year old female patient who presents to the [place] clinic today with c/o sore throat and productive cough for the past 4 days. Denies known exposure to sick contacts. Had negative Covid test on Thursday. Has been using Mucinex and Albuterol inhaler at home with some mild relief. [facility] Medical History Breast cancer screening by mammogram Hypercholesterolemia Radicular pain of upper extremity Gout Surgical History H/O tubal ligation H/O toe surgery DDD (degenerative disc disease), cervical Family History Father Alcohol abuse Brother Schizophrenia Mental health disorder Brother FH: prostate cancer Maternal Uncle FH: prostate cancer Social History Housing: Apartment Alcohol intake: current Alcohol intake frequency: a few times a month Alcohol type: beer, wine and hard liquor Comment: once a month1-2 glasses Patient Tobacco Use Status: Former Tobacco user Tobacco use type: Cigarette Years Smoked: 1/2 pack a day 2019 stopped 08/2023 e-Cigarette/Vaping Use: Never Used Second Hand Smoke Exposure: No service: No Current occupational status: disabled Cognitive needs: Yes Hearing needs: No Vision needs: No Review of Systems Const All systems reviewed & are unremarkable except as noted in HPI and below Physical Exam Const General: cooperative and no acute distress HEENT Head: Yes normal to inspection Ears: hearing grossly normal bilaterally General nose exam: Normal external nose present and Normal nasal mucous membranes and turbinates present Face and sinus: Yes normal facial exam Mouth: Normal oral and palatal mucosa present and moist mucous membranes Throat: Yes posterior oropharynx abnormal (erythematous) Neck Neck: Yes no lymphadenopathy Resp Effort & Inspection: normal respiratory effort and Actively coughing Quality: dry Auscultation: clear to auscultation bilaterally Cardio Rate: regular rate Rhythm: regular rhythm Skin General skin exam: no rashes or lesions noted Extrem General: Yes capillary refill normal and Yes no clubbing, cyanosis or edema Psych Appearance: grossly normal Mental Status: mental status grossly normal Speech and movement: Normal speech and movement present Results AMB Rapid Strep AMB Rapid Strep Positive Last Edit by Rik Rivas CMA on 11/10/23 12:02 Assessment & Plan Assessment & Plan (1) Strep pharyngitis: Code(s): J02.0 - Streptococcal pharyngitis Plan: Rapid strep positive in the office. PCN sensitivity (GI), however can tolerate Cephalosporins and Amox abx. Will start her on Cefdinir BID 10 days. Reviewed indications, use, possible s/e of medication. Advised Tylenol and throat lozenges as needed, as well as warm saltwater gargles. Work note was provided. If she does not improve with time and treatment, she should return to the clinic for follow up evaluation. She agrees to plan. Orders: Orders AMB Rapid Strep Screen Today Z13.9 - Encounter for screening, unspecified Medications: New cefdinir Take twice a day for 10 days. 300 mg PO BID 10 days 20 caps 0RF J02.0 - St reptococcal pharyngitis Coding Level of Care Code Est Pt Level 4 (44342) Diagnoses Strep pharyngitis J02.0
[2023-11-10 11:48] VITALS: BP 124/90; PULSE 67; TEMP 37.2; O2SAT 97; BMI 35.7
== END 2023-11-10 12:24 | disposition home or self-care (01) ==
PROVIDERS: PCP Internal Medicine; Visit Provider Nurse Practitioner Family
DX: Z13.9 Encounter for screening, unspecified (principal); J02.0 Streptococcal pharyngitis
CPT/HCPCS: 87880; 99214